=== PATIENT | female | born 1995 | race Two or more races ===

== ENCOUNTER 2017-03-30 13:18 | Emergency (ER) | payer MEDICAID ==
[~2017-03-30] VITALS: Ht 170.2 cm; Wt 68.7 kg
[2017-03-30 13:32] VITALS: BP 132/80
[2017-03-30 15:59] LABS: microscopic required? YES; urine erythrocyte 3+ (NEGATIVE)
== END 2017-03-30 16:02 | disposition left against medical advice (07) ==
LOC: ED 13:18
PROVIDERS: Specialist
DX: O20.0 Threatened abortion (principal); Z3A.00 Weeks of gestation of pregnancy not specified